=== PATIENT | female | born 1990 | race African-American/Black ===

== ENCOUNTER 2023-08-11 09:48 | Emergency (ER) | payer OTHER ==
[~2023-08-11] VITALS: Ht 154.9 cm; Wt 79.4 kg
[2023-08-11] MEDS ORDERED: TUSNEL LIQUID178 ML PO (11:36)
[2023-08-11] MEDS ORDERED: OSEL75CA PO (11:36)
== END 2023-08-11 13:26 | disposition home or self-care (01) ==
LOC: ER 09:49
DX: J09.X2 Influenza due to identified novel influenza A virus with other respiratory manifestations (principal); Z20.822 Contact with and (suspected) exposure to COVID-19